=== PATIENT | female | born 1975 | race Caucasian/White ===

== ENCOUNTER 2023-11-07 01:06 | Emergency (ER) | payer BC ==
[2023-11-07] MEDS: Acetaminophen/HYDROcodone 325-5 MG Tab PO ONE (01:32)
[2023-11-07] MEDS: Cyclobenzaprine 10 MG Tab PO ONE (01:32)
[2023-11-07 01:38] LABS: BASOPHILS ABSOLUTE AUTO 0.05 K/uL (0.00-0.20); BASOPHILS PERCENT AUTO 0.6 % (0.0-1.0); EOSINOPHILS ABSOLUTE AUTO 0.17 K/uL (0.00-0.45); EOSINOPHILS PERCENT AUTO 2.1 % (0.0-6.0); HEMOGLOBIN 10.2 g/dL (12.0-16.0); IMMATURE GRAN ABSOLUTE AUTO 0.02 K/uL (0.00-0.05); IMMATURE GRAN PERCENT AUTO 0.2 % (0.0-0.4); LYMPHOCYTES ABSOLUTE AUTO 2.29 K/uL (1.00-4.80); LYMPHOCYTES PERCENT AUTO 27.8 % (24.0-44.0); MEAN CORPUSCULAR HEMOGLOBIN 25.4 pg (28.0-32.0); MEAN CORPUSCULAR HGB CONC 31.9 g/dL (32.0-36.0); MEAN CORPUSCULAR VOLUME 79.6 fL (83.0-99.0); MEAN PLATELET VOLUME 10.4 fL (9.4-12.3); MONOCYTES ABSOLUTE AUTO 0.57 K/uL (0.00-0.80); MONOCYTES PERCENT AUTO 6.9 % (0.0-8.0); NEUTROPHILS ABSOLUTE AUTO 5.13 K/uL (1.80-7.70); NEUTROPHILS PERCENT AUTO 62.4 % (41.0-71.0); PLATELET COUNT,PLT 373 K/uL (150-400); RED BLOOD CELL COUNT 4.02 M/uL (4.10-5.30); WHITE BLOOD CELL COUNT,WBC 8.23 K/uL (3.9-11.3)
[2023-11-07 02:05] LABS: A/G RATIO 1.2 (0.9-1.6); ALBUMIN 3.6 g/dL (3.4-5.0); BILIRUBIN TOTAL 0.2 mg/dL (0.2-1.0); CALCIUM 8.6 mg/dL (8.5-10.1); CARBON DIOXIDE,CO2 26.6 mmol/L (21.0-32.0); CREATININE 0.8 mg/dL (0.6-1.0); EST CRCL DRUG DOSING (CG) 77.38 mL/min; POTASSIUM,K 3.4 mmol/L (3.5-5.1); PROTEIN TOTAL,TP 6.7 g/dL (6.4-8.2)
[2023-11-07] MEDS: Albuterol/Ipratropium 3.0-0.5 MG/3 ML Neb Soln NEB ONE (02:22)
== END 2023-11-07 03:37 | disposition home or self-care (01) ==
LOC: MW.ED 01:06
DX: R06.00 Dyspnea, unspecified (principal); R10.31 Right lower quadrant pain; I10 Essential (primary) hypertension; F17.290 Nicotine dependence, other tobacco product, uncomplicated; Z75.8 Other problems related to medical facilities and other health care; Z79.899 Other long term (current) drug therapy; Z88.2 Allergy status to sulfonamides; Z91.013 Allergy to seafood
CPT/HCPCS: 36415; 71045; 73502; 80053; 85025; 99285; A9270; J7620-GY

== ENCOUNTER 2023-11-25 17:31 | Emergency (ER) | payer OTHER, BC ==
[2023-11-25] MEDS: Acetaminophen/HYDROcodone 325-5 MG Tab PO ONE (18:21)
== END 2023-11-25 18:40 | disposition home or self-care (01) ==
LOC: MW.ED 17:31
DX: S40.011A Contusion of right shoulder, initial encounter (principal); I10 Essential (primary) hypertension; Z75.8 Other problems related to medical facilities and other health care; Z91.013 Allergy to seafood; Z88.2 Allergy status to sulfonamides; Z79.899 Other long term (current) drug therapy; W22.09XA Striking against other stationary object, initial encounter
CPT/HCPCS: 73030; 99283; A9270

== ENCOUNTER 2023-11-27 09:39 | Emergency (ER) | payer OTHER, BC | END 2023-11-27 11:05 | disposition home or self-care (01) | LOC: MW.ED 09:39 | DX: S42.141A Displaced fracture of glenoid cavity of scapula, right shoulder, initial encounter for closed fracture (principal); Z75.8 Other problems related to medical facilities and other health care; I10 Essential (primary) hypertension; Z91.013 Allergy to seafood; Z88.2 Allergy status to sulfonamides; W22.8XXA Striking against or struck by other objects, initial encounter | CPT/HCPCS: 73200-26-RT; 73200-RT; 99283 ==

== ENCOUNTER 2023-12-10 22:00 | Emergency (ER) | payer BC ==
[2023-12-11] MEDS: oxyCODONE 5 MG Tab PO ONE (01:00)
== END 2023-12-11 01:06 | disposition home or self-care (01) ==
LOC: MW.ED 22:00
DX: M25.511 Pain in right shoulder (principal); G89.18 Other acute postprocedural pain; I10 Essential (primary) hypertension; Z79.899 Other long term (current) drug therapy; Z88.2 Allergy status to sulfonamides; Z88.8 Allergy status to other drugs, medicaments and biological substances; Z91.013 Allergy to seafood; Z75.8 Other problems related to medical facilities and other health care
CPT/HCPCS: 99283; A9270

== ENCOUNTER 2023-12-17 13:18 | Emergency (ER) | payer BC | END 2023-12-17 14:07 | disposition home or self-care (01) | LOC: MW.ED 13:18 | DX: Z76.0 Encounter for issue of repeat prescription (principal); I10 Essential (primary) hypertension; F17.210 Nicotine dependence, cigarettes, uncomplicated; Z79.899 Other long term (current) drug therapy; Z88.2 Allergy status to sulfonamides; Z91.013 Allergy to seafood; Z75.8 Other problems related to medical facilities and other health care | CPT/HCPCS: 99281 ==

== ENCOUNTER 2024-01-21 18:05 | Emergency (ER) | payer BC | END 2024-01-21 19:24 | disposition home or self-care (01) | LOC: MW.ED 18:05 | DX: M79.601 Pain in right arm (principal); I10 Essential (primary) hypertension; Z79.899 Other long term (current) drug therapy; Z91.013 Allergy to seafood; Z88.2 Allergy status to sulfonamides; X58.XXXA Exposure to other specified factors, initial encounter | CPT/HCPCS: 99283 ==